=== PATIENT | female | born 1965 | race Caucasian/White ===

== ENCOUNTER 2020-05-01 08:47 | Outpatient (REF) | payer OTHER, SELFPAY ==
--- NOTE | 2020-05-01 09:16 | XR_ITS ---
EXAMINATION: XR LEFT HIP XR LEFT KNEE CLINICAL INFORMATION: Left hip pain. Left knee pain. COMPARISON: None. TECHNIQUE: Left knee 4 views. Left hip 2 views. FINDINGS: Left Knee: Small marginal spurs in the medial compartment. Normal alignment. Joint spaces are maintained. No fracture or dislocation is seen. Small suprapatellar joint fluid. Small quadriceps tendon insertional enthesopathy.. Left Hip: Subchondral sclerosis in the acetabular roof, small subchondral cysts in the lateral acetabulum. Joint space is maintained. No fracture or dislocation. Visualized left SI joint is intact. Surgical clips projected over the pubis. XR/XR hip LT min 2V IMPRESSION: 1. No acute findings in the left knee. Small marginal spurring in the medial compartment. 2. Mild left hip joint arthritis. No evidence of acute fracture.
--- NOTE | 2020-05-01 09:16 | XR_ITS ---
EXAMINATION: XR LEFT HIP XR LEFT KNEE CLINICAL INFORMATION: Left hip pain. Left knee pain. COMPARISON: None. TECHNIQUE: Left knee 4 views. Left hip 2 views. FINDINGS: Left Knee: Small marginal spurs in the medial compartment. Normal alignment. Joint spaces are maintained. No fracture or dislocation is seen. Small suprapatellar joint fluid. Small quadriceps tendon insertional enthesopathy.. Left Hip: Subchondral sclerosis in the acetabular roof, small subchondral cysts in the lateral acetabulum. Joint space is maintained. No fracture or dislocation. Visualized left SI joint is intact. Surgical clips projected over the pubis. XR/XR knee LT 4V IMPRESSION: 1. No acute findings in the left knee. Small marginal spurring in the medial compartment. 2. Mild left hip joint arthritis. No evidence of acute fracture.
[2020-05-01 11:44] LABS: Alanine Aminotransferase 10 U/L (0-31); Anion Gap 13 (12-20); Aspartate Amino Transferase 14 U/L (5-31); Blood Urea Nitrogen 13 mg/dL (9-16); Calcium 8.7 mg/dL (8.4-10.2); Carbon Dioxide 29 mmol/L (22-29); Chloride 102 mmol/L (96-108); Cholesterol 231 mg/dL; Estimated Glomerular Filt Rate > 60; Glucose Fasting 125 mg/dL (60-99); HDL Cholesterol 43 mg/dL; LDL Cholesterol Calculated 163 mg/dl; Potassium 3.8 mmol/l (3.3-5.1); Sodium 140 mmol/L (135-145); Triglycerides 126 mg/dL
== END 2020-05-01 08:48 | disposition home or self-care (01) ==
LOC: HO.HMGCX 08:47
PROVIDERS: PCP Internal Medicine; Visit Provider Internal Medicine
DX: M25.552 Pain in left hip (principal); M25.562 Pain in left knee
CPT/HCPCS: 73502; 73564; 80048; 80061; 84450; 84460

== ENCOUNTER 2020-05-23 12:47 | Outpatient (REF) | payer OTHER, SELFPAY ==
[2020-05-23 17:28] LABS: TSH reflex Free T4 0.95 mIU/mL (0.32-4.0)
[2020-05-24 09:14] LABS: BV Int Neg Control Negative (Negative); BV Int Pos Control Positive (Positive)
[2020-05-24 21:32] LABS: C. trachomatis RNA TMA NOT DETECTED (NOT DETECTED); N. gonorrhoeae RNA TMA NOT DETECTED (NOT DETECTED)
[2020-05-29 02:32] LABS: HPV mRNA E6/E7 rflx Not Detected (Not Detected)
== END 2020-05-23 12:48 | disposition home or self-care (01) ==
LOC: HO.LAB 12:47
PROVIDERS: PCP Internal Medicine; Visit Provider Obstetrics & Gynecology
DX: Z01.419 Encounter for gynecological examination (general) (routine) without abnormal findings (principal); R63.5 Abnormal weight gain
CPT/HCPCS: 36415; 84443; 87480; 87491; 87510; 87591; 87624; 87660; 88142

== ENCOUNTER 2020-09-10 12:32 | Outpatient (REF) | payer OTHER, SELFPAY ==
--- NOTE | ~2020-09-10 | MM_ITS ---
EXAMINATION: MM SCREENING DIGITAL BREAST TOMOSYNTHESIS, BILATERAL CLINICAL INFORMATION: Screening. Asymptomatic. The lifetime risk of breast cancer based on the Tyrer-Cuzick Model is 10%. COMPARISON: Outside mammography: 08/16/2018, 07/08/2016 ([facility]). TECHNIQUE: Digital breast tomosynthesis is performed in both the craniocaudal and mediolateral oblique views along with computer-aided detection (CAD). Synthesized 2D images are generated from the tomosynthesis. FINDINGS: There are scattered areas of fibroglandular density (ACR BI-RADS breast composition Category b). There are no significant masses, abnormal calcifications, or other abnormalities. There is fine fibronodular parenchymal pattern similar to prior exam. The axilla and skin contours are unremarkable. There are no significant changes. MM/MM tomosynthesis screening BI IMPRESSION: No significant changes from prior outside exam. ASSESSMENT: BI-RADS 1: Negative RECOMMENDATION: Routine annual mammography screening. This patient's information was entered into a reminder system with a target due date for their next mammogram.
== END 2020-09-10 12:33 | disposition home or self-care (01) ==
LOC: HO.MAMMO 12:32
PROVIDERS: Visit Provider Internal Medicine
DX: Z12.31 Encounter for screening mammogram for malignant neoplasm of breast (principal)
CPT/HCPCS: 77063; 77067

== ENCOUNTER 2020-10-29 10:18 | Outpatient (REF) | payer OTHER, SELFPAY ==
[2020-10-29 11:27] LABS: MANUAL DIFF FLAG NO
[2020-10-29 11:31] LABS: Basophils Percent Auto 0.4 % (0-2); Eosinophils Absolute Auto 0.2 X10*3/uL (0.0-0.4); Eosinophils Percent Auto 2.8 % (0-4); Hematocrit 42.2 % (37-47); Hemoglobin 13.7 g/dl (12.0-16.0); Imm Gran Abs Auto 0.02 X10*3/uL (0.00-0.03); Imm Gran Pct Auto 0.2 % (0.0-0.4); Lymphocytes Percent Auto 36.8 % (20-40); Mean Corpuscular HGB Conc 32.5 g/dl (31.0-35.0); Mean Corpuscular Hemoglobin 28.2 pg (27.0-33.0); Mean Corpuscular Volume 86.8 fL (80-98); Mean Platelet Volume 10.7 fL (9.4-12.3); Monocytes Absolute Auto 0.7 X10*3/uL (0.1-1.2); Neutrophils Absolute Auto 4.2 X10*3/uL (2.0-8.3); Neutrophils Percent Auto 51.8 % (45-73); Platelet Count 339 X10*3/uL (160-400); Red Blood Count 4.86 X10*6/uL (4.20-5.50); Red Cell Distribution Width 12.6 % (11.0-16.0); White Blood Count 8.1 X10*3/uL (4.8-10.8)
[2020-10-29 11:58] LABS: Alanine Aminotransferase 11 U/L (0-31); Anion Gap 14 (12-20); Aspartate Amino Transferase 14 U/L (5-31); Blood Urea Nitrogen 16 mg/dL (9-16); Calcium 8.8 mg/dL (8.4-10.2); Carbon Dioxide 24 mmol/L (22-29); Chloride 107 mmol/L (96-108); Cholesterol 210 mg/dL; Estimated Glomerular Filt Rate > 60; Glucose Fasting 113 mg/dL (60-99); HDL Cholesterol 39 mg/dL; LDL Cholesterol Calculated 150 mg/dl; Sodium 141 mmol/L (135-145); Triglycerides 105 mg/dL
[2020-10-29 12:21] LABS: TSH reflex Free T4 1.04 uIU/mL (0.32-4.0); Vitamin D 25-OH Total 24.3 ng/mL (>30)
== END 2020-10-29 10:19 | disposition home or self-care (01) ==
LOC: HO.HMGCLDS 10:18
PROVIDERS: PCP Internal Medicine; Visit Provider Internal Medicine
DX: E78.5 Hyperlipidemia, unspecified (principal); G25.81 Restless legs syndrome; I10 Essential (primary) hypertension; R42 Dizziness and giddiness; R51.9 Headache, unspecified; R73.01 Impaired fasting glucose
CPT/HCPCS: 36415; 80048; 80061; 82306; 84443; 84450; 84460; 85025

== ENCOUNTER 2020-12-06 11:00 | Outpatient (RCR) | payer OTHER, SELFPAY ==
--- NOTE | 2020-11-27 13:29 | MHC.PT.EP ---
[facility] [place] Office [place] Office [place] Office [address] Kb Shanks [address] [phone] F: [phone] F: [phone] F: [phone] F: [phone] Physical Therapy Plan of Care Date of Evaluation: Date of Surgery: Diagnosis: LBP Assessment: 55 YO FEMALE REF TO PT FOR LBP W RECENT EXACERBATION 11/17/20- SHE WORKS FULL-TIME AT [employer] , REQ SOME LIFTING/ UNLOADING/ BENDING. OBJECTIVE FINDINGS INCLUDE DECR HIP AND TRUNK FLEXIBILITY, (+) PELVIC ASYMM, (+) SOFT TISSUE IRRITABILITY AND COMPENSATORY LUMBAR PS OVERUSE, AND PAIN IN HER MELVI LS REGION. FUNCTIONAL LIMITATIONS: DECR ANA TO STANDING, INCR SITTING, INCR WALKING, AND BENDING-> FUNCTIONAL SQUAT. Pt CURRENTLY DENIES BOWEL/ BLADDER SIGNS/ SXS AND (-) RADICULAR SXS. Pt WOULD BENEFIT FROM PT TO ADDRESS THE ABOVE FINDINGS AND DEV A HEP/ SELF-SX MGMT TECHN. Frequency and Duration: The patient will be seen 2x WK x 4 WKS Short Term Goals: Pt'S LS PAIN DECR TO 2-3/ 10 IN 2 WKS Pt DEMON PROPER BODY MECH W 3:3 SIMUL ADLs; DEMON WFL FUNCTIONAL SQUAT IN 2 WKS Pt DEMON WFL HIP/ HS/ TRUNK FLEXIBILITY IN 2 WKS Management Department Chair Goals: Pt INDEP W HEP AND SELF-SX MGMT STRATEGIES IN 4 WKS Pt RESUME REG ADLs/ WORK TASKS EVIDENT W IMPROVED OSWESTRY SCORE BY 8 POINTS (30/50 AT EVAL) IN 4 WKS Treatment Plan: Modalities to reduce pain, spasms and effusion. Manual therapy to restore motion and function. Therapeutic exercise to improve strength and flexibility. Neuromuscular re-education for posture and balance. Therapeutic activities to return to functional activities of daily living. Electronically signed by: Tamra Kenyon,PT Please sign and return to therapist. Thank you for your referral.
--- NOTE | 2020-12-13 07:37 | MHC.PT.DC ---
[facility] [place] Office [place] Office [place] Office [address] Kb Shanks [address] [phone] F: [phone] F: [phone] F: [phone] F: [phone] Physical Therapy Discharge Report Diagnosis: LBP Date of Surgery: Date of Evaluation: 11/27/20 Date of Discharge: 12/13/20 Treatments to Date: 4 Cancellations to Date: 0 No Shows to Date: 0 Discharge Status: Achieved Goals Improved Function Independent with HEP Patient Elected to Stop Discharge Summary: Pt REPORTS SHE FEELS MUCH BETTER AND IS READY FOR D/C FROM PT W HER HEP- Pt DEMON IMPROVED FLEXIBILITY, STRENGTH, SELF-POSTURAL CORRECTION , AND BODY MECH AWARENESS W WORK/ ADL SIMULATION. Electronically signed by: Tamra Kenyon,PT Please sign and return to therapist. Thank you for your referral.
== END 2020-12-13 07:39 | disposition home or self-care (01) ==
LOC: HO.PTCHIC 11:00
PROVIDERS: PCP Internal Medicine; Visit Provider Internal Medicine
DX: M54.5 Low back pain (principal)
CPT/HCPCS: 97110; 97140; 97161

== ENCOUNTER 2021-01-04 13:00 | Outpatient (RCR) | payer OTHER, SELFPAY ==
[2020-12-26 11:02] VITALS: BP 138/90; PULSE 87; O2SAT 98
--- NOTE | 2020-12-26 12:24 | MHC.PT.EP ---
[facility] [place] Office [place] Office [address] [phone] F: [phone] F: [phone] F: [phone] F: [phone] Physical Therapy Plan of Care Date of Evaluation: Date of Surgery: Diagnosis: This is a 55 yo female presenting to PT with a script for vertigo. Assessment: This is a 55 yo female presenting to PT with a script for vertigo. Symptoms have been ongoing for months. Symptoms are not every day and are described as fatigue, lightheadedness, loss of concentration and LOB as if one leg is longer than the other . Has symptoms at rest and with movement. She has a previous hx of PT assessment for vertigo but was negative. States that her symptoms went away but came back 2 years later. She has not seen ENT or had imaging. Examination shows oculomotor + tests except for vertical/horizontal saccades as well as conversion. (-) VBI B, and decreased cervical AROM. She was (+) for BPPV with tami-hallpike and performed R Chuy maneuver. Her nystagmus may have been horizontal as well but she was negative in roll test for symptoms and nystagmus. Patient with decreased balance with EC and head turns during DGI. S/S consistent with R PC BPPV and possible vestibular hypofunction; she would benefit from PT 2x/wk for 4wks to address impairments, implement HEP and optimize functional mobility. Frequency and Duration: The patient will be seen 2x/wk for 4wks Short Term Goals: I in HEP Android Architect Goals: Demo no nystagmus or symptoms in assessment positions Demo normal scores on all balance reassessments Report no LOB, return to normal ADLs without symptoms Treatment Plan: Modalities to reduce pain, spasms and effusion. Manual therapy to restore motion and function. Therapeutic exercise to improve strength and flexibility. Neuromuscular re-education for posture and balance. Therapeutic activities to return to functional activities of daily living. Electronically signed by: Yecenia Morales PT Please sign and return to therapist. Thank you for your referral.
--- NOTE | 2021-01-04 13:36 | MHC.PT.OD ---
[facility] [place] Office [place] Office [place] Office [address] Kb Shanks [address] [phone] F: [phone] F: [phone] F: [phone] F: [phone] Physical Therapy Daily Note Diagnosis: This is a 55 yo female presenting to PT with a script for vertigo. Date of Surgery: Date of Evaluation: 12/26/20 Date of Treatment: 01/04/21 Treatments to Date: 4 Cancellations to Date: 1 No Shows to Date: 0 Authorized Visits: Insurance End Date: Precautions/ Contraindications:Denies any significant PMHx Subjective: Patient reporting that she continues to feel dizzy Pain Score and Location: Objective Flowsheet: Tests & Measures Please see eval Exercises PT POC, inner ear anatomy, referrals, symptoms, safety Assessment of B burger pikes and roll test Modalities Assessment: 01/04: Patient has no nystagmus with assessment today in any positions. She reports symptoms in R hallpike and R roll test however. She states that it feels like something is draining through her head and her eyes are heavy. She is dizzy at rest and with positional changes. At this point we discussed holding PT due to limited changes in her symptoms and PT concerns. Educated her that she may benefit from discussing with her MD ENT referral or imaging to further assess symptoms. She is very concerned about productive flem in the AM as she reports that this seems related to her dizziness. Since starting PT we have trialed vestibular tx techniques without resolve of symptoms. 01/03: unable to come, rescheduled to tomorrow 01/04 PT Plan: reassess canals, introduce VOR exercises Short Term Goals: I in HEP Transmission Maintenance Supervisor Goals: Demo no nystagmus or symptoms in assessment positions Demo normal scores on all balance reassessments Report no LOB, return to normal ADLs without symptoms Electronically signed by: Yecenia Morales, PT
--- NOTE | 2021-02-04 10:01 | MHC.PT.DC ---
[facility] [place] Office [place] Office [address] Kb Shanks [address] [facility] [phone] F: [phone] F: [phone] F: [phone] F: [phone] Physical Therapy Discharge Report Diagnosis: This is a 55 yo female presenting to PT with a script for vertigo. Date of Surgery: Date of Evaluation: 12/26/20 Date of Discharge: 02/04/21 Treatments to Date: 4 Cancellations to Date: 1 No Shows to Date: 0 Discharge Status: Recommend MD Follow-up Discharge Summary: Patient had no nystagmus with assessment at the last tx session in any positions. She reports symptoms in R hallpike and R roll test however She states that it feels like something is draining through her head and her eyes are heavy. She is dizzy at rest and with positional changes. At this point we discussed holding PT due to limited changes in her symptoms and PT concerns. Educated her that she may benefit from discussing with her MD ENT referral or imaging to further assess symptoms. She is very concerned about productive flehm in the AM as she reports that this seems related to her dizziness. Since starting PT we have trialed vestibular tx techniques without resolve of symptoms. Electronically signed by: Yecenia Morales, PT Please sign and return to therapist. Thank you for your referral.
== END 2021-02-04 10:01 | disposition home or self-care (01) ==
LOC: HO.PTCHIC 13:00
PROVIDERS: PCP Internal Medicine; Visit Provider Internal Medicine
DX: R42 Dizziness and giddiness (principal)
CPT/HCPCS: 95992; 97110; 97161

== ENCOUNTER → 2021-01-09 10:58 | Outpatient (BNVA) | payer OTHER, SELFPAY | PROVIDERS: PCP Internal Medicine; Visit Provider Dietitian, Registered | DX: R73.01 Impaired fasting glucose (principal) | CPT/HCPCS: 97802 ==

== ENCOUNTER → 2022-10-31 14:28 | Outpatient (BNVA) | payer OTHER, SELFPAY | PROVIDERS: PCP Internal Medicine; Visit Provider Nurse Practitioner Family ==

== ENCOUNTER → 2022-12-04 14:34 | Outpatient (BNVA) | payer OTHER, SELFPAY | PROVIDERS: PCP Internal Medicine; Visit Provider Advanced Practice Midwife ==

== ENCOUNTER → 2023-04-23 10:57 | Outpatient (BNVA) | payer OTHER, SELFPAY | PROVIDERS: PCP Internal Medicine; Visit Provider Physical Medicine & Rehabilitation ==

== ENCOUNTER → 2023-05-01 09:56 | Outpatient (BNVA) | payer OTHER, SELFPAY | PROVIDERS: PCP Internal Medicine; Visit Provider Nurse Practitioner Family ==

== ENCOUNTER → 2024-03-14 11:09 | Outpatient (BNVA) | payer OTHER, SELFPAY | PROVIDERS: PCP Internal Medicine; Referring Provider Internal Medicine; Visit Provider Nurse Practitioner Family ==

== ENCOUNTER 2024-03-31 11:00 | Outpatient (RCR) | payer OTHER, SELFPAY ==
--- NOTE | 2024-02-09 11:45 | MHC.PT.EP ---
[facility] [place] Office [place] Office [place] Office [address] Kb Shanks [address] [phone] F: [phone] F: [phone] F: [phone] F: [phone] Physical Therapy Plan of Care Date of Evaluation: 02/09/24 Date of Surgery: n/a Diagnosis: low back pain Assessment: Patient is a 58 year old female presenting to PT with complaints of pain in her low back. Pt reports onset of pain began October 2023 due to insidious onset. She presents today with impairments in pain, lumbar ROM, hip strength, core strength, +ttp glute and lumbar region. 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 Clinical presentation today is most consistent with signs and sx associated with low back pain and pt will benefit from skilled PT 2 week x 4 weeks to address the following problems and impairments noted upon evaluation: pain, lumbar ROM, hip strength, core strength, +ttp glute and lumbar region. These problems limit the patient with the following functional activities: work, bending, lifting, ADLs, ambulating, standing. The prescribed treatment plan of care is medically necessary. Co-morbidities of fibromyalgia were identified and taken into considerations of plan of care. Pt was educated on HEP, role of PT, prognosis, POC. Frequency and Duration: The patient will be seen 2 x week x 4 weeks Short Term Goals: Pt will demonstrate improved lumbar ROM in available range with min to no pain in 2 weeks. Pt will demonstrate improved hip MMT strength by 1/3 grade in 2 weeks for improved lumbopelvic stability. Pt will demonstrate centralization of sx in 2 weeks. Moisture Meter Reader Goals: Pt will demonstrate improved Cristal score by 10% in 4 weeks for improved functional mobility. Pt will demonstrate ability to work with min to no pain at the end of her shift in 4 weeks for improved work tolerance. Pt will demonstrate ability to ambulate prolonged distances with min to no pain in 4 weeks for return to PLOF. Treatment Plan: Modalities to reduce pain, spasms and effusion. Manual therapy to restore motion and function. Therapeutic exercise to improve strength and flexibility. Neuromuscular re-education for posture and balance. Therapeutic activities to return to functional activities of daily living. Electronically signed by: Amber Seaman PT, DPT, ATC Please sign and return to therapist. Thank you for your referral.
--- NOTE | 2024-03-31 11:33 | MHC.PT.DC ---
[place] Office [place] Office [place] Office [address] Kb Shanks [address] [phone] F: [phone] F: [phone] F: [phone] F: [phone] Physical Therapy Discharge Report Diagnosis: low back pain Date of Surgery: n/a Date of Evaluation: 02/09/24 Date of Discharge: 03/31/24 Treatments to Date: 8 Cancellations to Date: 0 No Shows to Date: 0 Discharge Status: Recommend MD Follow-up Discharge Summary: 03/31/2024: Pt has unfortunately made minimal care home progress since start of care. She feels better at times but her pain continues to return. For a couple weeks she wasn't having numbness in the thigh but this has returned. Her ongoing pain is limiting her functional status. At this time max benefits of PT have been provided and skilled PT is no longer indicated due to lack of her progress. At this time I recommend following up with her referring provider for possibility of more imaging and evaluation/management of her pain. She is in agreement with plan. Electronically signed by: Amber Seaman, PT, DPT, ATC Please sign and return to therapist. Thank you for your referral.
== END 2024-03-31 11:33 | disposition home or self-care (01) ==
LOC: HO.PTCHIC 11:00
PROVIDERS: PCP Internal Medicine; Visit Provider Nurse Practitioner Family
DX: M54.50 Low back pain, unspecified (principal); M79.605 Pain in left leg
CPT/HCPCS: 97110; 97140; 97161

== ENCOUNTER → 2024-04-29 09:13 | Outpatient (BNVA) | payer OTHER, SELFPAY | PROVIDERS: PCP Internal Medicine; Visit Provider Nurse Practitioner Family ==

== ENCOUNTER → 2024-06-13 10:21 | Outpatient (BNVA) | payer OTHER, SELFPAY | PROVIDERS: PCP Internal Medicine ==

== ENCOUNTER 2024-07-26 06:30 | Outpatient (REF) | payer OTHER, SELFPAY ==
--- NOTE | ~2024-07-26 | FL_ITS ---
EXAMINATION: FL GUIDANCE ONLY HISTORY: M54.50 - Low back pain, unspecified COMPARISON: None available. TECHNIQUE: Fluoroscopy time: 0.6 minutes. Cumulative Dose: 9.57 mGy. DAP: 0.166 mGym2 Images: 14. FINDINGS: Fluoroscopic spot images of the lumbar spine demonstrate needles and contrast material in the regions of the bilateral L3-4, L4-5, and L5-S1 facet joints. FL/FL guidance in treatment room IMPRESSION: Fluoroscopy during procedure. Please see procedure report for additional information. Electronically signed by: Cong Jimenez MD 07/26/2024 03:55 PM EDT
--- OUTSIDE RECORDS SUMMARY | 2024-07-26 06:33 | XMS_ITS | Clinical Summary ---
Author Organization [facility] [address] ity Address [address] [place] [address] Care Team Providers Care Brass Cutter Name Role Phone Karen Lovell MD Primary Care Provider Medical History Medical History Date Comments Allergic rhinitis 02/08/2019 DX:Allergic rh initis Deviated nasal septum 02/08/2019 DX:Deviate d nasal septum Hypertrophy of tonsils 02/08/2019 DX:Hypert rophy of tonsils Hypertrophy of nasal turbinates 02/08/2019 DX:Hypertrophy of nasal turbinates Anxiety 02/08/2019 DX:Anxiety Depression 02/08/2019 DX:Depression Hypertension 02/08/2019 DX:Hypertension Mild persistent asthma 11/12/2018 DX:Mild p ersistent asthma Family History Medical History Relation Name Comments Diabetes Father CAD, Hypertensi on Hypertension Mother Relation Name Status Comments Father Mother Social History Tobacco Use Types Packs/Day Years Used Date Smoking Tobacco: Never Smokeless Tobacco: Never Alcohol Use Standard Drinks/Week Comments Yes 0 (1 standard drink = 0.6 oz pur e alcohol) Comments Unknown Sex and Gender Information Value Date Recorded Sex Assigned at Not on file Legal Sex Female 8:36 AM EST Gender Identity Not on file Sexual Orientation Not on file Obstetrics History Last Filed Vital Signs Vital Sign Reading Time Taken Comments Blood Pressure 154/95 11/26/2023 1:17 PM EDT Pulse 81 11/26/2023 1:17 PM EDT Temperature - - Respiratory Rate - - Oxygen Saturation - - Inhaled Oxygen Concentration - - Weight - - Height - - Body Mass Index - - Plan of Treatment Health Maintenance Due Date Last Done Comments Breast Cancer Screening 1966 Hepatitis B Vaccines (1 of 3 - 19+ 3-dose series) 1985 Pneumococcal Vaccine: 50+ Ye ars (1 of 2 - PCV) 1985 Pneumococcal Vaccine: Pediat rics (0 to 5 Years) and At-Risk Patients (6 to 64 Years) (1 of 2 - PCV) 1985 Cervical Cancer Screening: P ap Smear 1987 Zoster Vaccines (1 of 2) 2016 COVID-19 Vaccine ( - 2023-2 5 season) 2024 Influenza Vaccine (#1) 2024 Cholesterol Screening (Lipid Panel) 02/25/2024 Colorectal Cancer Screening: Colonoscopy 02/25/2024 Depression Screening 02/25/2024 HIV Screening 02/25/2024 Hepatitis C Screening 02/25/2024 Hypertension/CHF/CAD Annual BMP Blood Test 02/25/2024 Social Influencers of Health Screening 02/25/2024 DTaP,Tdap,and Td Vaccines (2 - Td or Tdap) 12/05/2028 12/05/2018 HIB Vaccines Aged Out No longer eligi ble based on patient's age to complete this topic HPV Vaccines Aged Out No longer eligi ble based on patient's age to complete this topic Hepatitis A Vaccines Aged Out No long er eligible based on patient's age to complete this topic IPV Vaccines Aged Out No longer eligi ble based on patient's age to complete this topic MMR Vaccines Aged Out No longer eligi ble based on patient's age to complete this topic Meningococcal ACWY Vaccine Aged Out N o longer eligible based on patient's age to complete this topic Meningococcal B Vacine Aged Out No lo nger eligible based on patient's age to complete this topic RSV Immunization Patients Un siria 20 months Aged Out No longer eligible b ased on patient's age to complete this topic Varicella Vaccines Aged Out No longer eligible based on patient's age to complete this topic Care Teams Brass Cutter Relationship Specialty Start Date End Date Karen Lovell MD [address] [facility] [place] [address] PCP - General Internal Medicine 10/18/18
== END 2024-07-26 06:31 | disposition home or self-care (01) ==
LOC: CF 06:30
PROVIDERS: Visit Provider Anesthesiology
DX: M54.50 Low back pain, unspecified (principal); G89.29 Other chronic pain; M47.817 Spondylosis without myelopathy or radiculopathy, lumbosacral region
CPT/HCPCS: 64493; 64494; J2003; J2795; Q9967

== ENCOUNTER 2024-07-26 12:56 | Outpatient (AMB) | payer OTHER, SELFPAY ==
[2024-07-26 13:03] VITALS: BP 148/79; PULSE 86; RESP 16; O2SAT 99
--- NOTE | 2024-07-26 13:03 | A.OFFVIS_ITS ---
Vital Signs 07/26/24 13:03 07/26/24 13:34 BP 148/79 H 158/82 H Blood Pressure Location Lt brachial Lt brachial Position Sitting Sitting Respiration 16 16 Pulse 86 86 Pulse Source Pulse Oximeter Pulse Oximeter Pulse Oximetry (%) 99 96 Oxygen Delivery Method Room Air Room Air Intake Visit Reasons: BILATERAL DIAGNOSTIC L3, L4, DRL5 MBB State Patrol Officer Required: No Accompanied by: sister inlaw Allergies oxycodone [From Percocet] Allergy (Intermediate, Verified 07/26/24 13:04) Itching tramadol Allergy (Intermediate, Verified 07/26/24 13:04) Itching Sulfa (Sulfonamide Antibiotics) Allergy (Verified 07/26/24 13:04) Unknown [facility] Medical History (Updated 07/18/24 @ 14:27 by TIFFANY Mojica) Acute bacterial pharyngitis Spina bifida occulta Type 2 diabetes mellitus without complication, without long-term current use of insulin History of adenomatous polyp of colon Chronic left-sided low back pain Xanthelasma of eyelid, bilateral Polyarthralgia Stress incontinence (female) (male) Obesity Positional lightheadedness Dyslipidemia Restless legs syndrome Fibromyalgia Refused influenza vaccine Essential hypertension Seasonal allergic rhinitis Depression Surgical History (Updated 07/13/24 @ 12:47 by Racheal Mariano) History of esophagogastroduodenoscopy (EGD) Hx of colonoscopy History of tubal ligation H/O carpal tunnel repair H/O: hysterectomy Family History (System 07/13/24 @ 12:47 by Racheal Mariano) Father Diabetes mellitus Hypertension H/O cerebral infarction Mother Hypertension Colon cancer Brother Substance abuse Paternal Aunt Breast cancer Social History (System 07/13/24 @ 12:47 by Racheal Mariano) Housing: House Alcohol intake: current Alcohol intake frequency: holidays/special occasions only Patient Tobacco Use Status: Never used Tobacco e-Cigarette/Vaping Use: Never Used Current occupational status: employed 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 Informed consent was thoroughly explained to the patient before the procedure.? The patient came to the operating room.? She was positioned prone on operating table with a pillow under her abdomen.? Time-out was performed delineating correct site and side of the procedure, nature of the injection, name and date of of the patient. The lower back and upper buttocks of the patient was prepped with ChloraPrep and draped with sterile utility towels.? C-arm was brought over the operating field and the point of interest were delineated as confluence of the superior articular process of L4 vertebra and L5 vertebra bilaterally with corresponding transverse process bilaterally., as well as confluence of the superior articular process of S1 on the bilaterally with sacral ala bilaterally. The point of interest projection to the skin was injected with small amount of mixture of lidocaine 2% and ropivacaine 0.5%. After that 22 gauge 3-1/2 inch needle was driven to point of interest in tunnel vision fashion. When needle gently contacted the bone injection of the contrast was performed delineating no intravascular and no intrathecal spread of the contrast. After that injection of the small amount of ropivacaine 0.5% less than 1 cc into each target site was performed. Upon completion of the injections the needle was removed sterile Band-Aids were applied. The patient tolerated procedure well. She was given a pain diary to complete after the procedure. Orders: Orders FL guidance in treatment room Today G89.29 - Other chronic pain, M47.817 - Spondylosis without myelopathy or radiculopathy, lumbosacral region, M54.50 - Low back pain, unspecified Coding Level of Care Code Procedure Only Diagnoses Lumbosacral spondylosis M47.817
[2024-07-26 13:34] VITALS: BP 158/82; PULSE 86; RESP 16; O2SAT 96
--- OUTSIDE RECORDS SUMMARY | 2024-07-26 15:30 | XMS_ITS | Clinical Summary ---
Author Organization [facility] ity Address [address] [place] [address] Care Team Providers Care Certified Detention Deputy Name Role Phone Karen Lovell MD Primary [...] age to complete this topic Care Teams Certified Detention Deputy Relationship Specialty Start Date End Date Karen Lovell MD [address] [facility] [address] PCP - General Internal Medicine 10/18/18
== END 2024-07-26 14:25 ==
LOC: HO.PMCPRC 12:56
PROVIDERS: PCP Internal Medicine; Visit Provider Anesthesiology
DX: M47.817 Spondylosis without myelopathy or radiculopathy, lumbosacral region (principal)
CPT/HCPCS: 64493; 64494

== ENCOUNTER 2024-08-02 11:24 | Outpatient (AMB) | payer OTHER, SELFPAY ==
--- NOTE | 2024-08-02 11:27 | A.OFFVIS_ITS ---
Vital Signs 08/02/24 11:30 Height 5 ft 7 in BMI Reason not done Patient refused/unable BP 162/95 H Blood Pressure Location Lt brachial Position Sitting Pulse 76 Pulse Source Pulse Oximeter Pulse Oximetry (%) 97 Oxygen Delivery Method Room Air Intake Visit Reasons: BILATERAL DIAGNOSTIC L3, L4, DRL5 MBB Intake Note: Pain today 12/25 Global Logistics Analyst Required: No Accompanied by: Self / Same As Patient Allergies oxycodone [From Percocet] Allergy (Intermediate, Verified 08/02/24 11:31) Itching tramadol Allergy (Intermediate, Verified 08/02/24 11:31) Itching Sulfa (Sulfonamide Antibiotics) Allergy (Verified 08/02/24 11:31) Unknown HPI Comments Details: The patient is a 59-year-old female presenting with axial low back pain and left-sided sciatica. She recently underwent bilateral diagnostic L3-L4 DR L5 medial branch blocks, experiencing reduced pain levels for 4-6 hours, thereafter returning to baseline. Her current regimen includes Tylenol and Aleve, providing mild to moderate relief. The patient?s sciatica primarily impacts her left side, radiating pain exacerbated by movement, causing significant discomfort during daily activities such as walking, standing, and prolonged sitting. She also reports chronic left foot pain and has received cortisone injections through Podiatry services without relief, pain continues especially when barefoot. Patient is interested to address left sciatica pain prior to proceeding with longer term pain relief for axial low back pain. Denies any recent cough, cold, infection, fever or any other significant changes in medical history since last office visit. Past Procedures: 07/26/24: Bilateral Diagnostic L3-L4 DR L5 MBB-90% pain relief for 4-6 hours PRIOR: Patient is a very pleasant 58-year-old female with history of spina bifida occulta at S1, lumbar spondylosis, lumbar radiculopathy, lumbar scoliosis, fibromyalgia, depression, obesity, type 2 diabetes, polyarthralgia, presents today for initial evaluation of worsening chronic low back pain with left-sided radiculopathy. Denies any recent or past trauma, injury, or falls. She completed 4 sessions of physical therapy without significant improvement in her leg symptoms and partial improvement in her back symptoms. Patient has paused PT due to significant increase in her back and left leg pain with PT and home exercise program. 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 which involve lifting, bending, twisting, prolonged walking and standing. Back pain is localized to the left side of lower back with radiation into her left buttock and into her left and lateral posterior thigh and cough with associated numbness, burning, tingling, and intermittent weakness due to pain. Patient denies any previous spine surgeries or injections. She reports history of 2 uncomplicated vaginal deliveries. Currently pain affects her daily activities and functioning, mobility, work, sleep, and social interactions. Pain is most severe during the day and evenings which she rates 6/10. Denies any fever or chills, abdominal or groin pain, bladder or bowel dysfunction or saddle anesthesia. Oswestry low back pain disability score =17 (moderate disability) Location: Lower back radiates into LLE posteriorly Duration: 6 months Characteristics of symptom or complaint: Aching, tingling, stabbing, numbness, cramping sharp, burning, spasming Aggravating or associated factors: Any movement, prolonged walking or standing, bending, lifting, twisting Relieving factors: Laying flat, rest, sitting, heating pad, cyclobenzaprine Treatment: [facility] Medical History Acute bacterial pharyngitis Spina bifida occulta Type 2 diabetes mellitus without complication, without long-term current use of insulin History of adenomatous polyp of colon Chronic left-sided low back pain Xanthelasma of eyelid, bilateral Polyarthralgia Stress incontinence (female) (male) Obesity Positional lightheadedness Dyslipidemia Restless legs syndrome Fibromyalgia Refused influenza vaccine Essential hypertension Seasonal allergic rhinitis Depression Surgical History History of esophagogastroduodenoscopy (EGD) Hx of colonoscopy History of tubal ligation H/O carpal tunnel repair H/O: hysterectomy Family History Father Diabetes mellitus Hypertension H/O cerebral infarction Mother Hypertension Colon cancer Brother Substance abuse Paternal Aunt Breast cancer Social History Housing: House Alcohol intake: current Alcohol intake frequency: holidays/special occasions only Patient Tobacco Use Status: Never used Tobacco e-Cigarette/Vaping Use: Never Used Current occupational status: employed Current occupation: [employer] Gender identity: Female Cognitive needs: No Hearing needs: No Vision needs: Yes Female Reproductive History Menstrual Age of Menarche: 12 Review of Systems Const All systems reviewed & are unremarkable except as noted in HPI and below Physical Exam Vital Signs: Last Vital Signs Pulse 76 08/02/24 11:30 BP 162/95 H 08/02/24 11:30 Pulse Ox 97 08/02/24 11:30 Oxygen Delivery Method Room Air 08/02/24 11:30 General: Appears afebrile. Alert and oriented. Mood and affect appropriate. Follows and participates in conversation appropriately. Respiratory effort is unlabored. No cough. Able to transition from sit to stand unassisted. Ambulates with bilaterally normal heel strike and toe off, reports pain increase with toe/heel standing on the left. General: Yes no CVA tenderness Back/Spine/Pelvis Other: Limited lumbar ROM due to pain. Mildly antalgic gait with slight limping due to left foot pain. Lumbar flexion and axial rotation reproduce [id number] pain. Demonstrates 5/5 strength of quadriceps bilaterally as well as flexion/dorsiflexion of bilateral feet against resistance. Reports decreased sensory sensation in left L5-S1 distribution. 2+ pedal pulses bilaterally. Seated straight leg rise with dorsiflexion positive on the left. +2 patellar and +1 left +2 right achilles reflexes bilaterally. Facet loading test positive bilaterally. Kobe sign is positive bilaterally, Arturo?s, Pelvic compression and Stinchfield tests are positive bilaterally. No groin pain with I/E hip rotations. Valsalva maneuver negative. Multiple widespread TTPs 16/16 bilaterally, including upper and lower extremities. Back: no CVA tenderness Cervical Spine: cervical ROM normal, cervical muscular tenderness and No Cervical spine tenderness Thoracic/Lumbar Spine: thoracic and lumbar spine normal to inspection, No Thoracic/lumbar spine scar(s), Lasegue's sign positive on the left and localized, pain with thoraco-lumbar ROM, paraspinal muscle tenderness, thoraco- lumbar ROM limited, No thoracic spinal tenderness and lumbar spinal tenderness (L3-S1) Pelvis: buttock tenderness on the left and no sciatic notch tenderness Sacroiliac joints: bilaterally tender to palpation Extrem General: Yes capillary refill normal, Yes no clubbing, cyanosis or edema and Yes no calf tenderness Results Reviewed Results Reviewed: XR LUMBOSACRAL SPINE 03/10/24 CLINICAL INFORMATION: Low back pain, unspecified. COMPARISON: None available. TECHNIQUE: 6 views of the lumbar spine, inclusive of flexion and extension views, were obtained. FINDINGS: Multilevel marginal osteophyte formation and endplate sclerosis from the lower thoracic spine to the lumbar spine. S shaped curvature with the dextroconvex convexity at the L2 level. No acute cortical disruption or gross malalignment. Decreased intervertebral disc height, L5-S1. Spina bifida occulta, S1. No lytic or blastic lesions. IMPRESSION: Multilevel thoracolumbar spondylosis without associated scoliosis. No acute fracture or listhesis or instability based upon this exam. MR LUMBAR SPINE WITHOUT AND WITH CONTRAST 04/21/24 CLINICAL INFORMATION: Pain. Spina bifida occulta, history of kidney stones FINDINGS: Mild dextrocurvature of the lumbar spine. Preservation of the normal lumbar lordosis. Grade 1 anterolisthesis at L5-S1. Edema and enhancement involving the left L4 and L5 pedicles. There is also patchy edema and enhancement along the posterior aspect of L5. The vertebral body heights are preserved. Multilevel disc desiccation with mild disc height loss at L4-5 and L5-S1. The visualized spinal cord is normal in caliber. No abnormal cord signal or enhancement. The conus medullaris terminates at L1. T12-L1: No significant spinal canal or neural foraminal narrowing. L1-2: No significant spinal canal or neural foraminal narrowing. L2-3: Bilateral facet arthrosis. Patchy edema surrounding the right facet joint. No significant spinal canal or neural foraminal narrowing. L3-4: Shallow disc bulge and bilateral facet arthrosis. Patchy edema and enhancement surrounding the left greater than right facet joints. No significant spinal canal or neural foraminal narrowing. L4-5: Shallow disc bulge and bilateral facet arthrosis. Patchy edema surrounding the left greater than right facet joints. No significant spinal canal stenosis. Mild left neural foraminal narrowing. L5-S1: Diffuse disc bulge with superimposed left subarticular/foraminal disc protrusion. Bilateral facet arthrosis. There is a 4 mm extracanalicular synovial cyst along the left lamina. No significant spinal canal stenosis. Mild left neural foraminal narrowing with the disc abutting the exiting L5 nerve roots bilaterally. The paravertebral soft tissues are unremarkable. IMPRESSION: -Edema and enhancement the left L4 and L5 pedicles. There is also patchy edema and enhancement along the posterior aspect of L5. Findings are nonspecific and may represent acute reactive changes. Additional edema and enhancement surrounding the right L2-3, bilateral L3-4, and bilateral L4-5 facet joint is also likely degenerative in etiology. -Multilevel lumbar spondylosis without significant spinal canal stenosis. At L5-S1, there is a left subarticular/foraminal disc protrusion which abuts the exiting L5 nerve roots bilaterally. Assessment & Plan Assessment & Plan (1) Chronic left-sided low back pain: Code(s): M54.50 - Low back pain, unspecified; G89.29 - Other chronic pain Category: Medical (2) DDD (degenerative disc disease), thoracolumbar: Code(s): M51.35 - Other intervertebral disc degeneration, thoracolumbar region Category: Medical (3) Lumbar radiculopathy: Code(s): M54.16 - Radiculopathy, lumbar region Category: Medical (4) Muscle spasm of back: Code(s): M62.830 - Muscle spasm of back Category: Medical Plan Patient reports 90% pain relief for up to 6 hours since recent diagnostic lumbar medial branch blocks for axial low back pain. We reviewed benefits, risks and process for RFA and Sprint PNS trial for a longer term pain relief. Patient reports left sided sciatica pain has been more bothersome and she would like to address this initially. Schedule left L5-S1 TFESI injections with local and fluoroscopy. Expectations, risks and benefits were reviewed. Patient is aware she will be contacted to schedule this procedure. Encouraged follow-up with podiatry for more assessment on persistent left foot pain. Current pain control with Tylenol, Aleve, gabapentin, Tylenol, heat therapy, activity modification, and weight optimization with adequate hydration will be maintained. All questions and concerns have been answered and patient agreed with the treatment plan. Follow-up after injections and sooner as needed. Patient was informed and verbally consented to the use of an ambient scribe for clinic note documentation during this visit. Patient Instructions: - Pending insurance approval for left L5-S1 TFESI injection as discussed. - Follow up with podiatry for continued foot pain, consider getting MRI if recommended by installation & maintenance executive. - Continue taking Tylenol, Aleve and gabapentin as needed for back pain and fibromyalgia. Monitor pain levels. - Discuss any new symptoms or changes in pain with me at your next appointment. - Consider RFA and Sprint PNS trial as future treatment options to address axial low back pain. Coding Level of Care Code Est Pt Level 4 (58171) Complex EM visit Add On G2211 Diagnoses Chronic left-sided low back pain M54.50; G89.29 DDD (degenerative disc disease), thoracolumbar M51.35 Lumbar radiculopathy M54.16 Muscle spasm of back M62.830
[2024-08-02 11:30] VITALS: BP 162/95; PULSE 76; O2SAT 97
--- OUTSIDE RECORDS SUMMARY | 2024-08-02 13:56 | XMS_ITS | Clinical Summary ---
Author Organization [facility] ity Address [address] [place] [address] Care Team Providers Care Ring Attacher Name Role Phone Karen Lovell MD Primary [...] age to complete this topic Care Teams Ring Attacher Relationship Specialty Start Date End Date Karen Loevll MD [address] [facility] [place] [address] PCP - General Internal Medicine 10/18/18
== END 2024-08-02 11:45 | disposition home or self-care (01) ==
LOC: HO.PMC 11:25
PROVIDERS: PCP Internal Medicine; Visit Provider Nurse Practitioner Family
DX: M54.50 Low back pain, unspecified (principal); G89.29 Other chronic pain; M51.35 Other intervertebral disc degeneration, thoracolumbar region; M54.16 Radiculopathy, lumbar region; M62.830 Muscle spasm of back
CPT/HCPCS: 99214

== ENCOUNTER 2024-09-12 11:17 | Outpatient (AMB) | payer OTHER, SELFPAY ==
--- NOTE | 2024-09-12 11:28 | A.OFFPC_ITS ---
Vital Signs 09/12/24 11:35 Height 5 ft 7 in Weight 196 lb BMI 30.7 BP 136/86 Blood Pressure Location Lt brachial Position Sitting Respiration 15 Pulse 85 Pulse Source Pulse Oximeter Temp 98.1 F Temp Source Oral Pulse Oximetry (%) 98 Intake Visit Reasons: 6 months follow up Intake Note: Pt is here today for her 6mo. f/u Allergies oxycodone [From Percocet] Allergy (Intermediate, Verified 09/12/24 11:42) Itching tramadol Allergy (Intermediate, Verified 09/12/24 11:42) Itching Sulfa (Sulfonamide Antibiotics) Allergy (Verified 09/12/24 11:42) Unknown Medication List - Last Reconciled 09/12/24 by Karen Lovell MD amlodipine 5 mg PO DAILY ascorbic acid (vitamin C) 500 mg PO DAILY blood-glucose meter As directed cholecalciferol (vitamin D3) 25 mcg PO DAILY cinnamon bark (Cinnamon) 500 mg PO DAILY cranberry 500 mg PO BID docusate sodium 100 mg PO BEDTIME gabapentin 300 mg PO TID 30 days omega [id number]-fish oil 300-1,000 mg 1 cap PO DAILY omeprazole 20 mg PO DAILY PRN oxybutynin chloride ER 5 mg PO DAILY Panax, [place]araguan [id number] 150 mg-25 mg- 25 mg-15 mcg (Ginseng Complex) caps PO turmeric mg PO venlafaxine ER 75 mg PO DAILY Tobacco use date assessed: 09/12/24 Dental Screening Dental Screen Date: 09/12/24 Did you have a dental visit in the last 12 months?: Yes Did you have a dental problem in the last 6 months where you did not have access to dental care?: No Was dental information given to patient?: Patient has dentist [facility] Medical History (Updated 09/12/24 @ 11:44 by Karen Lovell MD) Acute bacterial pharyngitis Spina bifida occulta Type 2 diabetes mellitus without complication, without long-term current use of insulin History of adenomatous polyp of colon Chronic left-sided low back pain Xanthelasma of eyelid, bilateral Polyarthralgia Stress incontinence (female) (male) Obesity Positional lightheadedness Dyslipidemia Restless legs syndrome Fibromyalgia Refused influenza vaccine Essential hypertension Seasonal allergic rhinitis Depression Surgical History History of esophagogastroduodenoscopy (EGD) Hx of colonoscopy History of tubal ligation H/O carpal tunnel repair H/O: hysterectomy Family History Father Diabetes mellitus Hypertension H/O cerebral infarction Mother Hypertension Colon cancer Brother Substance abuse Paternal Aunt Breast cancer Social History Housing: House Alcohol intake: current Alcohol intake frequency: holidays/special occasions only Patient Tobacco Use Status: Never used Tobacco e-Cigarette/Vaping Use: Never Used Current occupational status: employed Current occupation: [employer] Gender identity: Female Cognitive needs: No Hearing needs: No Vision needs: Yes Female Reproductive History Menstrual Age of Menarche: 12 Questionnaire PHQ-9 Over the last 2 weeks, how often have you been bothered by any of the following problems? 1. Little interest or pleasure in doing things: several days 2. Feeling down, depressed, or hopeless: several days 3. Trouble falling or staying asleep, or sleeping too much: several days 4. Feeling tired or having little energy: several days 5. Poor appetite or overeating: several days 6. Feeling bad about yourself - or that you are a failure or have let yourself or your family down: several days 7. Trouble concentrating on things, such as reading the newspaper or watching television: several days 8. Moving or speaking so slowly that other people could have noticed. Or the opposite - being so fidgety or restless that you have been moving around a lot more than usual: several days 9. Thoughts that you would be better off or of hurting yourself in some way: several days Total score: 9 Source: Developed by Drs. Cong Novoa, Rosa Heller, Jordi Morales and colleagues, with an educational jenaro from [employer]. Thrive Questionnaire Date Thrive assessed: 09/12/24 I am a: Patient What is your living situation today?: I have a steady place to live Within the past 12 months, did the food you bought not last and you didn't have the money to get more?: Never true Within the past 12 months, did you worry whether your food would run out before you got money to buy more?: Never true Do you have trouble paying for medicines?: No Do you have trouble getting transportation to medical appointments?: No Do you have trouble paying your heating and electricity bill?: No Do you have trouble taking care of your child, family member or friend?: No Do you have trouble with day-to-day activities such as bathing, preparing meals, shopping, managing finances, etc.?: No Are you currently unemployed and looking for a job?: No Are you interested in more education?: No Please select the resources that you would like help with: None Currently or been in a relationship where the following occur: No concerns reported THRIVE Score: 0 AUDIT C Alcohol Use Questionnaire (AUDIT-C) 1. How often do you have a drink containing alcohol?: Never Total Score: 0 RAYMUNDO-7 AMB Questionnaire RAYMUNDO-7 Date RAYMUNDO - 7 assessed: 03/10/24 Source: Developed by Drs. Cong Novoa, Rosa Heller, Jordi Morales and colleagues, with an educational jenaro from [employer]. Physical exam (Primary Care) Vital Signs: Last Vital Signs Temp 98.1 F 09/12/24 11:35 Pulse 85 09/12/24 11:35 Resp 15 09/12/24 11:35 BP 136/86 09/12/24 11:35 Pulse Ox 98 09/12/24 11:35 BMI result Body Mass Index 30.7 Tobacco/Smoking Status: Tobacco use Status Tobacco use date assessed 09/12/24 09/12/24 11:38 Patient Tobacco Use Status Never used Tobacco 09/12/24 11:30 e-Cigarette/Vaping Use Never Used 09/12/24 11:30 PHQ-9: PHQ-9 Score PHQ-9: Total score 9 09/12/24 11:53 Thrive Assessment: Date of Thrive Assessment Date Thrive assessed 09/12/24 09/12/24 11:30 Currently or been in a relationship where the following occur: No concerns reported Results AMB Hemoglobin A1c AMB Hemoglobin A1c 5.7 % Last Edit by Liane Carrillo CMA on 09/12/24 11:56 Coding Diagnoses Type 2 diabetes mellitus without complication, without long-term current use of insulin E11.9 Dyslipidemia E78.5 Essential hypertension I10 Postmenopausal status Z78.0 Assessment & Plan Assessment & Plan (1) Type 2 diabetes mellitus without complication, without long-term current use of insulin: Code(s): E11.9 - Type 2 diabetes mellitus without complications Category: Medical (2) Dyslipidemia: Code(s): E78.5 - Hyperlipidemia, unspecified Category: Medical (3) Essential hypertension: Code(s): I10 - Essential (primary) hypertension Category: Medical (4) Postmenopausal status: Code(s): Z78.0 - Asymptomatic menopausal state Orders: Orders AMB Hemoglobin A1c Today E11.9 - Type 2 diabetes mellitus without complications Vitamin D 25-OH Total Today Z78.0 - Asymptomatic menopausal state Vitamin B12 and Folate Today Z78.0 - Asymptomatic menopausal state
[2024-09-12 11:35] VITALS: BP 136/86; PULSE 85; RESP 15; TEMP 36.7; O2SAT 98; BMI 30.7
--- OUTSIDE RECORDS SUMMARY | 2024-09-12 13:38 | XMS_ITS | Clinical Summary ---
Author Organization [facility] ity Address [address] [place] [address] Care Team Providers Care Delivery Professional Name Role Phone Karen Lovell MD Primary [...] Vaccine ( - 2023-2 5 season) 2024 Cholesterol Screening (Lipid Panel) 02/25/2024 Colorectal Cancer Screening: Colonoscopy 02/25/2024 Depression Screening 02/25/2024 HIV Screening 02/25/2024 Hepatitis C Screening 02/25/2024 Hypertension/CHF/CAD Annual BMP Blood Test 02/25/2024 Social Influencers of Health Screening 02/25/2024 Influenza Vaccine (Season Ended) 2025 DTaP,Tdap,and Td Vaccines (2 - Td or [...] age to complete this topic Meningococcal B Vaccine Aged Out No l onger eligible based on patient's age to complete this topic RSV Immunization Patients Un siria 20 months Aged Out No longer eligible b ased on patient's age to complete this topic Varicella Vaccines Aged Out No longer eligible based on patient's age to complete this topic Care Teams Delivery Professional Relationship Specialty Start Date End Date Karen Lovell MD [address] [facility] [place] [address] PCP - General Internal Medicine 10/18/18
== END 2024-09-12 12:26 | disposition home or self-care (01) ==
PROVIDERS: PCP Internal Medicine; Visit Provider Internal Medicine
DX: E11.9 Type 2 diabetes mellitus without complications (principal)

== ENCOUNTER → 2024-09-12 11:17 | Outpatient (BNVA) | payer OTHER, SELFPAY | PROVIDERS: PCP Internal Medicine; Visit Provider Internal Medicine | DX: E11.9 Type 2 diabetes mellitus without complications (principal); E78.5 Hyperlipidemia, unspecified; I10 Essential (primary) hypertension; N39.3 Stress incontinence (female) (male); Z79.899 Other long term (current) drug therapy; Z78.0 Asymptomatic menopausal state | CPT/HCPCS: 83036; 96127 ==

== ENCOUNTER 2024-09-14 07:38 | Outpatient (REF) | payer OTHER, SELFPAY ==
--- OUTSIDE RECORDS SUMMARY | 2024-09-14 07:40 | XMS_ITS | Clinical Summary ---
Author Organization [facility] ity Address [address] [place] [address] Care Team Providers Care Supervisor Printing Shop Name Role Phone Karen Lovell MD Primary [...] age to complete this topic Care Teams Supervisor Printing Shop Relationship Specialty Start Date End Date Karen Lovell MD [address] [place] [address] PCP - General Internal Medicine 10/18/18
[2024-09-14 11:00] LABS: Alanine Aminotransferase 17 U/L (0-31); Anion Gap 12 (12-20); Aspartate Amino Transferase 28 U/L (5-31); Blood Urea Nitrogen 20 mg/dL (9-16); Calcium 8.9 mg/dL (8.4-10.2); Carbon Dioxide 28 mmol/L (22-29); Chloride 105 mmol/L (96-108); Cholesterol 207 mg/dL (<200); Estimated Glomerular Filt Rate > 60; Glucose Fasting 115 mg/dL (60-99); HDL Cholesterol 44 mg/dL (>40); LDL Cholesterol Calculated 144 mg/dL (<100); Potassium 3.6 mmol/L (3.3-5.1); Sodium 141 mmol/L (135-145); Triglycerides 95 mg/dL (<150)
[2024-09-14 11:03] LABS: Creatinine Urine 113.53 mg/dL
[2024-09-14 11:07] LABS: Folate 6.5 ng/mL (> or = 4.0); Vitamin B12 752 pg/mL (200-900)
== END 2024-09-14 07:39 | disposition home or self-care (01) ==
LOC: HO.HMGCLDS 07:38
PROVIDERS: PCP Internal Medicine; Visit Provider Internal Medicine
DX: E11.9 Type 2 diabetes mellitus without complications (principal); E78.5 Hyperlipidemia, unspecified; I10 Essential (primary) hypertension; Z78.0 Asymptomatic menopausal state
CPT/HCPCS: 36415; 80048; 80061; 82043; 82306; 82570; 82607; 82746; 84450; 84460

== ENCOUNTER 2025-03-09 15:37 | Outpatient (AMB) | payer OTHER, SELFPAY ==
--- OUTSIDE RECORDS SUMMARY | 2024-02-17 06:01 | XMS_ITS | Continuity of Care Document ---
Author Organization [facility] Address [address] [place] [address] [address] [place] [address] Phone Care Team Providers Care Retail Business Development Manager Name Role Phone Vlad TODD, FROYLAN, Cong [...] Providers Copied on Encounter [facility], [address] [place] [address] Dr Gutierrez [address], [id number], [place] tel:[phone] [facility] No Information 4 Vlad TODD, RAYMOND GALEANO. [address] [facility] 302, [place], [place], [id number], [place]. tel:[phone] Offic/outpt E&m Estab 5 Min Trial- Telemedicine [place] & [place] [facility], [address] [place] [address] Dr [address] [place] Edwards [place], [id number], [place] tel:[phone] [facility] - [place] [facility] [place] Localized edemaCramp and spasmRestless legs syndromeVenou s insufficiency (chronic) (peripheral)E ssential (primary) hypertensionP ruritus, unspecified Kobi-0 4 Giovanna Melvin. [address] [place] [address], [address], [place], [id number], [place]. tel:[phone] [facility], [address] [place] [address] [facility] [address], [id number], [place] tel:[phone] [facility] - [facility] Chronic venous hypertension (idiopathic) with other complications of bilateral lower extremity Apr-2 4 Vlad TODD, FROYLAN, RAYMOND Gar. [address] [place] [address], [place], [id number], [place]. tel:[phone] Referring Provider: Karen Potts, [address] [place] [address], [place], [address]. tel:[phone] Offic Cons [facility] Mod-nd 60- CT & [place] [facility], [address] [place] [address] [facility] [address] 1000[place], [id number], [place] tel:[phone] [facility] - [facility] Chronic venous hypertension (idiopathic) with other complications of bilateral lower extremityLoca lized edemaRestless legs syndromeEssen tial (primary) hypertensionV enous insufficiency (chronic) (peripheral)P ruritus, unspecifiedCr amp and spasm Apr-2 4 Vlad TODD RVT, RAYMOND Gar. [address] [place] [address] 302, [facility] [place], [id number], [place]. tel:[phone] Referring Provider: Karen Potts, [address] [place] [address], [place], [address]. tel:[phone] [facility], [address] [place] [address] Dr [address], [place], [id number], [place] tel:[phone] [facility] Chronic venous hypertension (idiopathic) with other complications of bilateral lower extremity Vlad TODD, RVT, RPVI Cong. [address] [facility], [facility] [address], [place], [id number], [place]. tel:[phone] Referring Provider: Karen Lovell MD [place], [address] [facility] [address] [place], [address]. tel:[phone] Family History Family Member Type Diagnosis Age At Onset No Information Payers Payer name Insurance type Covered democrat ID Authoriza tion(s) No Information Social History [...]
--- NOTE | 2025-03-09 15:52 | MHC.OFFVIS ---
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 Attempting to eat a healthy diet with calcium and vitamin D and stays active with exercise. History of hysterectomy, precancerous cells. Last mammogram; not UTD. Colonoscopy is UTD. FH colon cancer. [facility] Medical History Acute bacterial pharyngitis Spina bifida occulta Type 2 diabetes mellitus without complication, without long-term current use of insulin History of adenomatous polyp of colon Chronic left-sided low back pain Xanthelasma of eyelid, bilateral Polyarthralgia Stress incontinence (female) (male) Obesity Positional lightheadedness Dyslipidemia Restless legs syndrome Fibromyalgia Refused influenza vaccine Essential hypertension Seasonal allergic rhinitis Depression Surgical History History of esophagogastroduodenoscopy (EGD) Hx of colonoscopy History of tubal ligation H/O carpal tunnel repair H/O: hysterectomy Family History Father Diabetes mellitus Hypertension H/O cerebral infarction Mother Hypertension Colon cancer Brother Substance abuse Paternal Aunt Breast cancer Social History Housing: House Alcohol intake: current Alcohol intake frequency: holidays/special occasions only Patient Tobacco Use Status: Never used Tobacco e-Cigarette/Vaping Use: Never Used Current occupational status: employed Current occupation: [employer] Gender identity: Female Cognitive needs: No Hearing needs: No Vision needs: Yes Female Reproductive History Menstrual Age of Menarche: 12 Menopause type: surgical Date of last pap smear: 10/03/21 (neg pap and hpv) History of abnormal pap smear: Yes (hx leep 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) Date of Mammogram: 10/13/23 (Birad 2) Review of Systems Const All systems reviewed & are unremarkable except as noted in HPI and below Reports as per HPI Eyes Reports no additional complaints ENT Reports no additional complaints Card Reports no additional complaints Resp Reports no additional complaints GI Reports as per HPI and Reports no additional complaints Reports as per HPI Musc Reports no additional complaints Skin/Breast Reports as per HPI Neuro Reports no additional complaints Psych Reports no additional complaints Endo Reports no additional complaints Cachorro/Lymph Reports no additional complaints Aller/Immun Reports no additional complaints Physical Exam Vital Signs: Last Vital Signs BP 118/82 03/09/25 15:54 BMI result Body Mass Index 30.9 Const General: cooperative, healthy appearing, no acute distress, well developed and alert Orientation/consciousness: patient oriented x3 HEENT Head: Yes normal to inspection Eyes General: appearance normal, both eyes and all related structures Neck Neck: Yes normal visual inspection Thyroid: Thyroid normal Chest Chest palpation & inspection: normal inspection of the chest and other (no puckering, dimpling, peau de orange, retraction, discharge, masses) Breast/axilla inspection: normal inspection of the breasts Breast/axilla palpation: normal palpation of the breasts Resp Effort & Inspection: normal respiratory effort GI Inspection: Yes normal to inspection Palpation (GI): Soft to palpation Rectal Exam - Female: deferred General: Yes bladder normal to palpation External Female Exam: normal external appearance and normal appearance of the urethra Speculum Exam - Vagina: normal appearance of the vagina, normal palpation and normal vaginal discharge Speculum Exam - Cervix: Cervix absent (Vaginal cuff no lesions or nodules) Bimanual exam- vagina & uterus: normal bimanual exam, normal palpation, bladder normal to palpation and uterus absent Bimanual Exam- Adnexa, other: no masses Skin General skin exam: no rashes or lesions noted Rashes: no rashes Neuro General: patient oriented x3 Cognition (Neuro): normal cognition Extrem General: Yes normal to inspection Psych Attitude: cooperative Thought process: Normal thought process present Assessment & Plan Assessment & Plan (1) Encounter for well woman exam with routine gynecological exam: Code(s): Z01.419 - Encounter for gynecological examination (general) (routine) without abnormal findings Category: Medical Plan Discussed: Current recommendations for pap smears per ASCCP guidelines. Pap obtained today. Breast awareness, periodic self breast exams and yearly mammogram. Mammogram ordered. Maintain a healthy lifestyle, well balanced diet including Calcium 1,200 mg and Vitamin D 600 IU daily, and routine exercise. Patient verbalizes understanding and agrees to the plan of care. She was given opportunity to ask questions and all questions were answered to the best of my ability. RTO in 1 year for annual motor generator set operator exam. This note is constructed using voice recognition software. While every effort has been made to ensure accuracy, parts analyst errors may have been included. Orders: Orders Pap Smear Today Z01.419 - Encounter for gynecological examination (general) (routine) without abnormal findings MM tomosynthesis screening BI Today Z12.31 - Encounter for screening mammogram for malignant neoplasm of breast HPV High risk Today Z01.419 - Encounter for gynecological examination (general) (routine) without abnormal findings Coding Level of Care Code Est Pt Prev Care 40-64y(92059) Diagnoses Encounter for well woman exam with routine gynecological exam Z01.419
[2025-03-09 15:54] VITALS: BP 118/82; BMI 30.9
--- OUTSIDE RECORDS SUMMARY | 2025-03-09 19:13 | XMS_ITS | Clinical Summary ---
Author Organization [facility] ity Address [address] [place] [address] Care Team Providers Care Top And Trim Worker Name Role Phone Karen Lovell MD Primary [...] Last Done Comments Breast Cancer Screening 1966 Colorectal Cancer Screening: Colonoscopy 1966 Hepatitis B Vaccines (1 of 3 - 19+ 3-dose series) 1985 Pneumococcal Vaccine: 50+ Ye ars (1 of 2 - PCV) 1985 Cervical Cancer Screening: P ap Smear 1987 RSV Immunization Adult Patie nts (1 - Risk 50-74 years 1-dose series) 2016 Zoster Vaccines (1 of 2) 2016 Cholesterol Screening (Lipid Panel) 02/25/2024 HIV Screening 02/25/2024 Hepatitis C Screening 02/25/2024 Hypertension/CHF/CAD Annual BMP Blood Test 02/25/2024 Social Influencers of Health Screening 02/25/2024 Depression Screening 05/18/2024 COVID-19 Vaccine (1 - 2023-2 5 season) 2025 Influenza Vaccine (#1) 2025 DTaP,Tdap,and Td Vaccines (2 - Td [...] age to complete this topic Care Teams Top And Trim Worker Relationship Specialty Start Date End Date Karen Lovell MD [address] [place] [address] PCP - General Internal Medicine 10/18/18
== END 2025-03-10 09:24 | disposition home or self-care (01) ==
LOC: HO.HWS 15:37
PROVIDERS: PCP Internal Medicine; Visit Provider Advanced Practice Midwife
DX: Z01.419 Encounter for gynecological examination (general) (routine) without abnormal findings (principal)
CPT/HCPCS: 99396; 99459

== ENCOUNTER 2025-03-09 15:37 | Outpatient (REF) | payer OTHER, SELFPAY | END 2025-03-09 15:38 | disposition home or self-care (01) | LOC: HO.LNP 15:37 | PROVIDERS: PCP Internal Medicine; Visit Provider Advanced Practice Midwife | DX: Z01.419 Encounter for gynecological examination (general) (routine) without abnormal findings (principal); Z11.51 Encounter for screening for human papillomavirus (HPV); Z98.51 Tubal ligation status; Z79.899 Other long term (current) drug therapy | CPT/HCPCS: 87626; 88175 ==

== ENCOUNTER 2025-04-12 14:01 | Outpatient (AMB) | payer OTHER, SELFPAY ==
--- OUTSIDE RECORDS SUMMARY | 2024-02-17 05:01 | XMS_ITS | Continuity of Care Document ---
Author Organization [facility] Address [address] [place] [address] [address] [place] [address] Phone Care Team Providers Care Tag Marker Name Role Phone Vlad TODD, FROYLAN, Cong ANDRADE Unavailable U navailable Allergies, Adverse Reactions, Alerts Substance Reaction Status Criticality Sulfa (Sulfonamide Antibiotics) Active No Information Procedures Procedure Date Offic/outpt E&m Estab 5 Min Trial- Telem edicine CT & [place] 18-30 mmHg Thigh length gradient tony tito stocking Offic Cons New/estab Mod-hi 60- CT & [place] Duplex Scan-extrem Veins; Comp- CT & [place] Advance Directives Directive Yes / No Effective Date File Name No Information Encounters Encounter Description Practice Location Reason(s) For Visit Diagnoses Date Provider Providers Copied on Encounter [facility], [address] [place] [address] Dr Gutierrez [address], [id number], [place] tel:[phone] [facility] No Information 4 Vlad TODD, RAYMOND GALEANO. [address] [facility] [address], [place], [place], [id number], [place]. tel:[phone] Offic/outpt E&m Estab 5 Min Trial- Telemedicine CT & [place] [facility], [address] [place] [address] Dr [address]Suite [place], [id number], [place] tel:[phone] [facility] - [place] [facility] [place] Localized edemaCramp and spasmRestless legs syndromeVenou s insufficiency (chronic) (peripheral)E ssential (primary) hypertensionP ruritus, unspecified Kobi-0 4 Giovanna Melvin. [address] [place] [address], [address], [place], [id number], [place]. tel:[phone] [facility], [address] [place] [address] [facility] [address], [id number], [place] tel:[phone] [facility] - [facility] Chronic venous hypertension (idiopathic) with other complications of bilateral lower extremity Apr-2 4 Vlad TODD, FROYLAN, RAYMOND Gar. [address] [place] [address], [place], [id number], [place]. tel:[phone] Referring Provider: Karen Potts, [address] [place] [address], [place], [address]. tel:[phone] Offic Cons [facility] [place] [facility] Mod-va 60- CT & [place] [facility], [address] [place] [address] [facility] [address], [id number], [place] tel:[phone] [facility] - [facility] Chronic venous hypertension (idiopathic) with other complications of bilateral lower extremityLoca lized edemaRestless legs syndromeEssen tial (primary) hypertensionV enous insufficiency (chronic) (peripheral)P ruritus, unspecifiedCr amp and spasm Apr-2 4 Vlad TODD RVT, RAYMOND Gar. [address] [place] [address] [address], [facility] [place], [id number], [place]. tel:[phone] Referring Provider: Karen Potts, [address] [place] [address], [place], [address]. tel:[phone] [facility], [address] [place] [address] Dr [address], [place], [id number], [place] tel:[phone] [facility] Chronic venous hypertension (idiopathic) with other complications of bilateral lower extremity Vlad TODD, RVT, RPVI Cong. [address] [facility], [facility] 302, [place], [id number], [place]. tel:[phone] Referring Provider: Karen Lovell MD [place], [address] [facility] [address] [place], [address]. tel:[phone] Family History Family Member Type Diagnosis Age At Onset No Information Payers Payer name Insurance type Covered green party ID Authoriza tion(s) No Information Social History Type Description Quantity Date Captured Comments Sex Female Smoking Status No Information Chief Complaint And Reason For Visit No Information Reason For Referral Reason For Referral No Information Plan Of Treatment Date Type Action Status Goal Diet education completed Referral Ordered: Weight management: Referral to physician timeframe: 3 Months (related to Body mass index (BMI) 30.0-30.9, adult) ordered History Of Present Illness Encounter Date Complaint History Of Prese nt Illness No Information Functional Status Date Functional Assessmen t No Information Instructions Date Instruction Additional Infor mation Compression stocking usage as conservative measure Related to Localized edema Patient education booklet given Related to Localized edema Diet education Related to Body mass index (BMI) 30.0-30.9, adult Giving Encouragement to exercise Related to Body mass index (BMI) 30.0-30.9, adult Lifestyle education Related to B milton mass index (BMI) 30.0-30.9, adult Patient education booklet given Related to Chronic venous hypertension (idiopathic) with other complications of bilateral lower extremity Compression stocking usage as conservative measure Related to Chronic venous hypertension (idiopathic) with other complications of bilateral lower extremity Assessments Type Assessment Date No Information Patient Care Teams Name Effective Dates (start - stop) Status Members No Information
--- NOTE | 2025-04-12 14:19 | A.OFFPC_ITS ---
Vital Signs 04/12/25 14:22 Height 5 ft 7 in Weight 201 lb BMI 31.5 BP 140/90 H Blood Pressure Location Lt brachial Position Sitting Respiration 15 Pulse 93 Pulse Source Pulse Oximeter Temp 98.1 F Temp Source Oral Pulse Oximetry (%) 94 Oxygen Delivery Method Room Air Intake Visit Reasons: PE Intake Note: Pt is here today for her PE: Last mammogram 10/13/23, papsmear 03/10/25 Sandwich Hand Required: No Allergies oxycodone (From Percocet) Allergy (Intermediate, Verified 04/12/25 14:38) Itching tramadol Allergy (Intermediate, Verified 04/12/25 14:38) Itching Sulfa (Sulfonamide Antibiotics) Allergy (Verified 04/12/25 14:38) Unknown Medication List - Last Reconciled 04/12/25 by Karen Lovell MD acetaminophen ER (Tylenol Arthritis Pain) 650 mg PO Q12H [advanced collagen PO] amlodipine 5 mg PO DAILY blood-glucose meter As directed chlorophyll copper complex 800 mg PO DAILY cranberry 500 mg PO BID docusate sodium 100 mg PO BEDTIME gabapentin 300 mg PO TID 30 days naproxen sodium (Aleve) 220 mg PO BID PRN omega 4-qya-pbr-fish oil 300-1,000 mg 1 cap PO DAILY omeprazole 20 mg PO DAILY PRN oxybutynin chloride ER 5 mg PO DAILY rosuvastatin 5 mg PO 2XW 3 months turmeric mg PO venlafaxine ER 75 mg PO DAILY vitamin B complex 1 tab PO DAILY Tobacco use date assessed: 04/12/25 Dental Screening Dental Screen Date: 04/12/25 Did you have a dental visit in the last 12 months?: Yes Did you have a dental problem in the last 6 months where you did not have access to dental care?: No Was dental information given to patient?: Patient has dentist HPI PE HPI Details 59-year-old lady with past medical histo ry of hypertension, urinary incontinence, type 2 diabetes mellitus, and depression, here today for her physical exam. She has a scheduled mammogram on May 05, a [facility] appointment next year, and regular six-month dental cleanings. A recent eye exam revealed a small cataract in one eye. The patient refuses all vaccinations. She has been having thumb pain, with tendinitis suspected. She has been havi ng snapping sensation in thumb when grabbing objects. The patient has tried Voltaren (diclofenac) and Biofreeze without improvement Complains of feeling tired all the time, loss of concentration, and memory issues. Sleep is not restful, and the patient's has noted snoring, raising suspicion for obstructive sleep apnea. The patient has never been screened for sleep apnea. She takes Aleve for back pain and reports sharp pains in the upper back, prompting concern about kidney function. There is a history of hyperlipidemia, for which the patient takes rosuvastatin twice a week, and a history of prediabetes with slightly high blood sugar. She has been diagnosed to have Jameson's esophagus and stomach polyps found on a prior upper endoscopy. A colonoscopy in September 2022 revealed and removed two polyps, one of which was a precancerous tubular adenoma. [facility] Medical History (Updated 04/12/25 @ 14:52 by Karen Lovell MD) Excessive daytime sleepiness Acute bacterial pharyngitis Spina bifida occulta Type 2 diabetes mellitus without complication, without long-term current use of insulin History of adenomatous polyp of colon Chronic left-sided low back pain Xanthelasma of eyelid, bilateral Polyarthralgia Stress incontinence (female) (male) Obesity Positional lightheadedness Dyslipidemia Restless legs syndrome Fibromyalgia Refused influenza vaccine Essential hypertension Seasonal allergic rhinitis Depression Surgical History History of esophagogastroduodenoscopy (EGD) Hx of colonoscopy History of tubal ligation H/O carpal tunnel repair H/O: hysterectomy Family History Father Diabetes mellitus Hypertension H/O cerebral infarction Mother Hypertension Colon cancer Brother Substance abuse Paternal Aunt Breast cancer Social History Housing: House Alcohol intake: current Alcohol intake frequency: holidays/special occasions only Patient Tobacco Use Status: Never used Tobacco e-Cigarette/Vaping Use: Never Used Current occupational status: employed 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 1. Little interest or pleasure in doing things: not at all 2. Feeling down, depressed, or hopeless: not at all 3. Trouble falling or staying asleep, or sleeping too much: several days 4. Feeling tired or having little energy: several days 5. Poor appetite or overeating: several days 6. Feeling bad about yourself - or that you are a failure or have let yourself or your family down: several days 7. Trouble concentrating on things, such as reading the newspaper or watching television: several days 8. Moving or speaking so slowly that other people could have noticed. Or the opposite - being so fidgety or restless that you have been moving around a lot more than usual: several days 9. Thoughts that you would be better off or of hurting yourself in some way: several days Total score: 7 Depression Screening Interpretation: Positive Depression Screening Follow-up: Existing condition and In treatment Depression Screening Done: Yes Source: Developed by Drs. Cong Novoa, Rosa Heller, Jordi Morales and colleagues, with an educational jenaro from [employer]. Thrive Questionnaire Date Thrive assessed: 09/12/24 I am a: Patient What is your living situation today?: I have a steady place to live Within the past 12 months, did the food you bought not last and you didn't have the money to get more?: Never true Within the past 12 months, did you worry whether your food would run out before you got money to buy more?: Never true Do you have trouble paying for medicines?: No Do you have trouble getting transportation to medical appointments?: No Do you have trouble paying your heating and electricity bill?: No Do you have trouble taking care of your child, family member or friend?: No Do you have trouble with day-to-day activities such as bathing, preparing meals, shopping, managing finances, etc.?: No Are you currently unemployed and looking for a job?: No Are you interested in more education?: No Please select the resources that you would like help with: None Currently or been in a relationship where the following occur: No concerns reported THRIVE Score: 0 AUDIT C Alcohol Use Questionnaire (AUDIT-C) 1. How often do you have a drink containing alcohol?: Never Total Score: 0 RAYMUNDO-7 AMB Questionnaire RAYMUNDO-7 Date RAYMUNDO - 7 assessed: 04/12/25 Feeling nervous, anxious, or on edge: 0 = Not at all Not being able to stop or control worryin = Not at all Worrying too much about different things: 0 = Not at all Trouble relaxin = Not at all Being so restless that it is hard to sit still: 0 = Not at all Becoming easily annoyed or irritable: 0 = Not at all Feeling afraid as if something awful might happen: 0 = Not at all Total RAYMUNDO-7 score (0-4 normal; 5-9 mild; 10-14 moderate; 15-21 severe): 0 Source: Developed by Drs. Cong Novoa, Rosa Heller, Jordi Morales and colleagues, with an educational jenaro from [employer]. RAYMUNDO-7 Assessment Billing RAYMUNDO-7 Assessment Tool: RAYMUNDO-7 Assessment 21545 Review of Systems Const Reports no additional complaints, Reports excessive sweating, Reports night sweats and Denies weight loss Eyes Details: [employer] [facility], beginning cataract in 1 eye Denies change in vision ENT Details: Gets dental exam and cleaning every six-months Denies vertigo, Denies dizziness, Denies hoarseness, Denies epistaxis and Denies disequilibrium Card Denies chest pain, Denies irregular heart rhythm, Denies lightheadedness, Denies radiating jaw, neck or arm pain and Denies dyspnea Resp Denies chest congestion, Denies cough and Denies dyspnea GI Denies abdominal pain, Denies melena, Denies change in bowel habits, Denies change in stool character and Denies heartburn Reports no additional complaints Musc Reports as per HPI, Reports arthralgias and Reports other (Recurrent muscle spasm mainly in lower back) Skin/Breast Denies breast pain, Denies breast mass and Denies lesions Neuro Denies vertigo, Denies dizziness, Denies Sensory deficit (Neuro) and Denies disequilibrium Psych Reports no additional complaints Endo Reports no additional complaints and Reports excessive sweating Cachorro/Lymph Denies easy bleeding and Denies easy bruising Aller/Immun Reports no additional complaints Physical exam (Primary Care) Vital Signs: Last Vital Signs Temp 98.1 F 04/12/25 14:22 Pulse 93 04/12/25 14:22 Resp 15 04/12/25 14:22 BP 140/90 H 04/12/25 14:22 Pulse Ox 94 04/12/25 14:22 Oxygen Delivery Method Room Air 04/12/25 14:22 BMI result Body Mass Index 31.5 Tobacco/Smoking Status: Tobacco use Status Tobacco use date assessed 04/12/25 04/12/25 14:22 Patient Tobacco Use Status Never used Tobacco 04/12/25 14:22 e-Cigarette/Vaping Use Never Used 04/12/25 14:22 PHQ-9: PHQ-9 Score PHQ-9: Total score 7 04/16/25 02:43 Depression Screening Interpretation: Positive Depression Screening Follow-up: Existing condition and In treatment Thrive Assessment: Date of Thrive Assessment Date Thrive assessed 09/12/24 04/12/25 14:22 Currently or been in a relationship where the following occur: No concerns reported Const General: no acute distress Orientation/consciousness: patient oriented x3 HENMT Head: Yes normocephalic Ears: external ears normal, TM's normal bilaterally and EAC's normal General nose exam: Normal external nose present Face and sinus: Yes face symmetric Mouth: moist mucous membranes Eyes General: appearance normal, both eyes and all related structures Neck Other: Nonpalpable thyroid Neck: Yes full ROM, Yes no lymphadenopathy and Yes supple Resp Effort & Inspection: normal respiratory effort and able to speak in complete sentences Auscultation: clear to auscultation bilaterally Cardio Rate: regular rate Rhythm: regular rhythm Heart sounds: S1 normal heart sound present and S2 normal heart sound present GI Inspection: Yes normal to inspection Palpation (GI): Soft to palpation, nontender and no masses Auscultation: normal bowel sounds Other: Sees [facility] Skin General skin exam: no rashes or lesions noted Neuro General: patient oriented x3, gait normal, moves all extremities, Normal light touch and pain sensation, no focal motor deficits and CN's II-XI intact bilaterally Sensory Exam: No Sensory deficit (Neuro) Extrem General: Yes full ROM, Yes no joint enlargement, Yes no pedal edema, Yes no calf tenderness and Yes normal gait Psych Appearance: grossly normal and well kempt Mental Status: mental status grossly normal Speech and movement: Normal speech and movement present Affect: normal affect Coding Level of Care Code Est Pt Prev Care 40-64y(87003) Diagnoses Annual visit for general adult medical examination with abnormal findings Z00.01 Recurrent major depressive disorder, in full remission F33.42 Active/Remission status: in full remission Depression Type: major depressive disorder Major depression recurrence: recurrent Essential hypertension I10 Dyslipidemia E78.5 Class 1 obesity due to excess calories without serious comorbidity with body mass index (BMI) of 31.0 to 31.9 in adult E66.811; E66.09; Z68.31 Body mass index: BMI 31.0-31.9 Obesity classification: adult class 1 (BMI 30 - 34.9) Obesity type: due to excess calories Serious obesity comorbidity presence: without serious comorbidity Stress incontinence (female) (male) N39.3 Chronic heartburn R12 Polyarthralgia M25.50 Type 2 diabetes mellitus without complication, without long-term current use of insulin E11.9 Loud snoring R06.83 Chronic fatigue R53.82 Additional Codes RAYMUNDO-7 Assessment Billing - RAYMUNDO-7 Assessment Tool: RAYMUNDO-7 Assessment 32878 ([id number]) Assessment & Plan Assessment & Plan (1) Annual visit for general adult medical examination with abnormal findings: Code(s): Z00.01 - Encounter for general adult medical examination with abnormal findings (2) Depression: Code(s): F32.9 - Major depressive disorder, single episode, unspecified Category: Medical Qualifiers: Active/Remission status: in full remission Depression Type: major depressive disorder Major depression recurrence: recurrent Qualified Code(s): F33.42 - Major depressive disorder, recurrent, in full remission (3) Essential hypertension: Code(s): I10 - Essential (primary) hypertension Category: Medical (4) Dyslipidemia: Code(s): E78.5 - Hyperlipidemia, unspecified Category: Medical (5) Obesity: Code(s): E66.9 - Obesity, unspecified Category: Medical Qualifiers: Body mass index: BMI 31.0-31.9 Obesity classification: adult class 1 (BMI 30 - 34.9) Obesity type: due to excess calories Serious obesity comorbidity presence: without serious comorbidity Qualified Code(s): E66.811 - Obesity, class 1; E66.09 - Other obesity due to excess calories; Z68.31 - Body mass index [BMI] 31.0-31.9, adult (6) Stress incontinence (female) (male): Code(s): N39.3 - Stress incontinence (female) (male) Category: Medical (7) Chronic heartburn: Code(s): R12 - Heartburn Category: Medical (8) Polyarthralgia: Code(s): M25.50 - Pain in unspecified joint Category: Medical (9) Type 2 diabetes mellitus without complication, without long-term current use of insulin: Code(s): E11.9 - Type 2 diabetes mellitus without complications Category: Medical (10) Loud snoring: Code(s): R06.83 - Snoring (11) Chronic fatigue: Code(s): R53.82 - Chronic fatigue, unspecified Plan thumb pain is likely tendinitis from overuse. I recommended rest and a trial of [id number] Advil ointment. We discussed the possibility of obstructive sleep apnea as a cause for the patient's significant fatigue, non-restful sleep, and snoring. I have ordered a sleep study to investigate this further and explained that the clinic will contact the patient for scheduling. I reviewed the results of the 2022 colonoscopy, emphasizing the importance of follow-up due to the removal of a precancerous polyp, and a repeat procedure is due in three years. I also ordered fasting blood work to monitor cholesterol, glucose, and kidney function, and to investigate other potential causes for fatigue. We discussed lifestyle modifications, particularly dietary changes to reduce the intake of sugar, bread, and rice, to aid in weight management, blood sugar control, and reduction of inflammation. Continued on venlafaxine for control of depression, rosuvastatin 5 mg twice a day week, and omeprazole 1 capsule daily as needed for heartburn symptoms. Blood pressure slightly elevated on this visit, will continue amlodipine 5 mg daily , reinforced importance of adhering to a low-salt diet and getting at least 15-30 minutes of moderate intensity exercise daily. Patient refused recommended vaccines Orders: Orders Vitamin D 25-OH Total 04/12/25 E11.9 - Type 2 diabetes mellitus without complications, E66.09 - Other obesity due to excess calories, E66.811 - Obesity, class 1, E78.5 - Hyperlipidemia, unspecified, F33.42 - Major depressive disorder, recurrent, in full remission, I10 - Essential (primary) hypertension, M25.50 - Pain in unspecified joint, N39.3 - Stress incontinence (female) (male), R12 - Heartburn, Z00.01 - Encounter for general adult medical examination with abnormal findings, Z68.31 - Body mass index [BMI] 31.0-31.9, adult Basic Metabolic Panel Fasting 04/12/25 E11.9 - Type 2 diabetes mellitus without complications, E66.09 - Other obesity due to excess calories, E66.811 - Obesity, class 1, E78.5 - Hyperlipidemia, unspecified, F33.42 - Major depressive disorder, recurrent, in full remission, I10 - Essential (primary) hypertension, M25.50 - Pain in unspecified joint, N39.3 - Stress incontinence (female) (male), R12 - Heartburn, Z00.01 - Encounter for general adult medical examination with abnormal findings, Z68.31 - Body mass index [BMI] 31.0-31.9, adult Aspartate Amino Transferase 04/12/25 E11.9 - Type 2 diabetes mellitus without complications, E66.09 - Other obesity due to excess calories, E66.811 - Obesity, class 1, E78.5 - Hyperlipidemia, unspecified, F33.42 - Major depressive disorder, recurrent, in full remission, I10 - Essential (primary) hypertension, M25.50 - Pain in unspecified joint, N39.3 - Stress incontinence (female) (male), R12 - Heartburn, Z00.01 - Encounter for general adult medical examination with abnormal findings, Z68.31 - Body mass index [BMI] 31.0-31.9, adult Lipid Panel 04/12/25 E11.9 - Type 2 diabetes mellitus without complications, E66.09 - Other obesity due to excess calories, E66.811 - Obesity, class 1, E78.5 - Hyperlipidemia, unspecified, F33.42 - Major depressive disorder, recurrent, in full remission, I10 - Essential (primary) hypertension, M25.50 - Pain in unspecified joint, N39.3 - Stress incontinence (female) (male), R12 - Heartburn, Z00.01 - Encounter for general adult medical examination with abnormal findings, Z68.31 - Body mass index [BMI] 31.0-31.9, adult Hemoglobin A1c 04/12/25 E11.9 - Type 2 diabetes mellitus without complications, E66.09 - Other obesity due to excess calories, E66.811 - Obesity, class 1, E78.5 - Hyperlipidemia, unspecified, F33.42 - Major depressive disorder, recurrent, in full remission, I10 - Essential (primary) hypertension, M25.50 - Pain in unspecified joint, N39.3 - Stress incontinence (female) (male), R12 - Heartburn, Z00.01 - Encounter for general adult medical examination with abno rmal findings, Z68.31 - Body mass index [BMI] 31.0-31.9, adult Vitamin B12 and Folate 04/12/25 E11.9 - Type 2 diabetes mellitus without complications, E66.09 - Other obesity due to excess calories, E66.811 - Obesity, class 1, E78.5 - Hyperlipidemia, unspecified, F33.42 - Major depressive disorder, recurrent, in full remission, I10 - Essential (primary) hypertension, M25.50 - Pain in unspecified joint, N39.3 - Stress incontinence (female) (male), R12 - Heartburn, Z00.01 - Encounter for general adult medical examination with abnormal findings, Z68.31 - Body mass index [BMI] 31.0-31.9, adult Complete Blood Count Auto Diff 04/12/25 E11.9 - Type 2 diabetes mellitus without complications, E66.09 - Other obesity due to excess calories, E66.811 - Obesity, class 1, E78.5 - Hyperlipidemia, unspecified, F33.42 - Major depressive disorder, recurrent, in full remission, I10 - Essential (primary) hypertension, M25.50 - Pain in unspecified joint, N39.3 - Stress incontinence (female) (male), R12 - Heartburn, Z00.01 - Encounter for general adult medical examination with abnormal findings, Z68.31 - Body mass index [BMI] 31.0-31.9, adult Alanine Aminotransferase 04/12/25 E11.9 - Type 2 diabetes mellitus without complications, E66.09 - Other obesity due to excess calories, E66.811 - Obesity, class 1, E78.5 - Hyperlipidemia, unspecified, F33.42 - Major depressive disorder, recurrent, in full remission, I10 - Essential (primary) hypertension, M25.50 - Pain in unspecified joint, N39.3 - Stress incontinence (female) (male), R12 - Heartburn, Z00.01 - Encounter for general adult medical examination with abnormal findings, Z68.31 - Body mass index [BMI] 31.0-31.9, adult TSH reflex Free T4 04/12/25 E11.9 - Type 2 diabetes mellitus without complications, E66.09 - Other obesity due to excess calories, E66.811 - Obesity, class 1, E78.5 - Hyperlipidemia, unspecified, F33.42 - Major depressive disorder, recurrent, in full remission, I10 - Essential (primary) hypertension, M25.50 - Pain in unspecified joint, N39.3 - Stress incontinence (female) (male), R12 - Heartburn, Z00.01 - Encounter for general adult medical examination with abnormal findings, Z68.31 - Body mass index [BMI] 31.0-31.9, adult Referrals Sleep Medicine Referral G47.19 - Other hypersomnia, R06.83 - Snoring, R53.82 - Chronic fatigue, unspecified
[2025-04-12 14:22] VITALS: BP 140/90; PULSE 93; RESP 15; TEMP 36.7; O2SAT 94; BMI 31.5
--- OUTSIDE RECORDS SUMMARY | 2025-04-12 17:03 | XMS_ITS | Clinical Summary ---
Author Organization [facility] ity Address [address] [place] [address] Care Team Providers Care Race Car Driver Name Role Phone Karen Lovell MD Primary [...] Depression Screening 05/18/2024 COVID-19 Vaccine (1 - 2024-2 6 season) 2025 Influenza Vaccine (#1) 2025 DTaP,Tdap,and [...] age to complete this topic Care Teams Race Car Driver Relationship Specialty Start Date End Date Karen Lovell MD [address] [place] [address] PCP - General Internal Medicine 10/18/18
== END 2025-04-12 15:09 | disposition home or self-care (01) ==
LOC: HO.HMCC 14:01
PROVIDERS: PCP Internal Medicine; Visit Provider Internal Medicine
DX: Z00.01 Encounter for general adult medical examination with abnormal findings (principal); F33.42 Major depressive disorder, recurrent, in full remission; I10 Essential (primary) hypertension; E78.5 Hyperlipidemia, unspecified; E66.811 Obesity, class 1; E66.09 Other obesity due to excess calories; Z68.31 Body mass index [BMI] 31.0-31.9, adult; N39.3 Stress incontinence (female) (male); R12 Heartburn; M25.50 Pain in unspecified joint; E11.9 Type 2 diabetes mellitus without complications; R06.83 Snoring; R53.82 Chronic fatigue, unspecified

== ENCOUNTER → 2025-04-12 14:01 | Outpatient (BNVA) | payer OTHER, SELFPAY | PROVIDERS: PCP Internal Medicine; Visit Provider Internal Medicine | DX: Z00.01 Encounter for general adult medical examination with abnormal findings (principal); I10 Essential (primary) hypertension; E11.9 Type 2 diabetes mellitus without complications; M54.9 Dorsalgia, unspecified; E78.5 Hyperlipidemia, unspecified; F33.42 Major depressive disorder, recurrent, in full remission; E66.811 Obesity, class 1; E66.09 Other obesity due to excess calories; R12 Heartburn; M25.50 Pain in unspecified joint; R06.83 Snoring; Z68.31 Body mass index [BMI] 31.0-31.9, adult; Z79.899 Other long term (current) drug therapy | CPT/HCPCS: 96127 ==

== ENCOUNTER 2025-04-20 09:18 | Outpatient (REF) | payer OTHER, SELFPAY ==
--- OUTSIDE RECORDS SUMMARY | 2025-04-20 10:20 | XMS_ITS | Clinical Summary ---
Author Organization [facility] ity Address [address] [place] [address] Care Team Providers Care Educational Specialist Name Role Phone Karen Lovell MD Primary Care Provider [phone] Medical History Medical History Date Comments Allergic [...] age to complete this topic Care Teams Educational Specialist Relationship Specialty Start Date End Date Karen Lovell MD [address] [place] [address] PCP - General Internal Medicine 10/18/18
[2025-04-20 13:00] LABS: MANUAL DIFF FLAG NO
[2025-04-20 13:09] LABS: Hematocrit 41.2 % (37.0-47.0); Hemoglobin 13.6 g/dl (12.0-16.0); Imm Gran Abs Auto 0.03 X10*3/uL (0.00-0.03); Imm Gran Pct Auto 0.4 % (0.0-0.4); Lymphocytes Absolute Auto 2.7 X10*3/uL (1.2-4.9); Mean Corpuscular HGB Conc 33.0 g/dl (31.0-35.0); Mean Corpuscular Hemoglobin 28.2 pg (27.0-33.0); Mean Corpuscular Volume 85.3 fL (80.0-98.0); NRBC Abs Auto 0.000 X10*3/uL (0.0-0.012); NRBC Pct Auto 0.0 /100WBC (0.0-0.2); Platelet Count 304 X10*3/uL (160-400); Red Blood Count 4.83 X10*6/uL (4.20-5.50); White Blood Count 7.6 X10*3/uL (4.8-10.8)
[2025-04-20 13:21] LABS: Alanine Aminotransferase 17 U/L (0-31); Anion Gap 10 (12-20); Aspartate Amino Transferase 26 U/L (5-31); Blood Urea Nitrogen 15 mg/dL (9-16); Calcium 9.0 mg/dL (8.4-10.2); Carbon Dioxide 29 mmol/L (22-29); Chloride 105 mmol/L (96-108); Cholesterol 182 mg/dL (<200); Estimated Glomerular Filt Rate > 60; HDL Cholesterol 38 mg/dL (>40); Potassium 3.2 mmol/L (3.3-5.1); Sodium 141 mmol/L (135-145); Triglycerides 98 mg/dL (<150)
[2025-04-20 14:00] LABS: Folate 9.3 ng/mL (> or = 4.0); Vitamin B12 779 pg/mL (200-900)
== END 2025-04-20 09:19 | disposition home or self-care (01) ==
LOC: HO.HMGCLDS 09:18
PROVIDERS: PCP Internal Medicine; Visit Provider Internal Medicine
DX: Z00.00 Encounter for general adult medical examination without abnormal findings (principal); F33.42 Major depressive disorder, recurrent, in full remission; I10 Essential (primary) hypertension; E78.5 Hyperlipidemia, unspecified; E11.9 Type 2 diabetes mellitus without complications; E66.811 Obesity, class 1; Z68.31 Body mass index [BMI] 31.0-31.9, adult; N39.3 Stress incontinence (female) (male); M25.50 Pain in unspecified joint; R12 Heartburn
CPT/HCPCS: 36415; 80048; 80061; 82306; 82607; 82746; 83036; 84443; 84450; 84460; 85025

== ENCOUNTER 2025-05-05 12:59 | Outpatient (REF) | payer OTHER, SELFPAY ==
--- NOTE | ~2025-05-05 | MM_ITS ---
EXAMINATION: MM SCREENING DIGITAL BREAST TOMOSYNTHESIS, BILATERAL CLINICAL INFORMATION: Screening. Asymptomatic. COMPARISON: Mammography: Comparison is made with available priors TECHNIQUE: Digital breast mammography with tomosynthesis is performed in both the craniocaudal and mediolateral oblique views along with computer-aided detection (CAD). FINDINGS: There are scattered areas of fibroglandular density. Right marker clip. There are no significant masses, abnormal calcifications, or other abnormalities. MM/MM tomosynthesis screening BI IMPRESSION: No mammographic evidence of malignancy. ASSESSMENT: BI-RADS Category 2: Benign RECOMMENDATION: Routine annual mammography screening. 1 year F/U This examination should not preclude the clinical evaluation of a suspicious palpable abnormality. This patient's information was entered into a reminder system with a target due date for their next mammogram. Electronically signed by: Monique Brown DO 05/09/2025 10:29 AM CHUCK
--- OUTSIDE RECORDS SUMMARY | 2025-05-05 14:46 | XMS_ITS | Clinical Summary ---
Author Organization [facility] ity Address [address] [place] [address] Care Team Providers Care Talent Development Coordinator Name Role Phone Karen Lovell MD Primary [...] on file Sexual Orientation Not on file Last Filed Vital Signs Vital Sign Reading [...] age to complete this topic Care Teams Talent Development Coordinator Relationship Specialty Start Date End Date Karen Lovell MD [address] [place] [address] PCP - General Internal Medicine 10/18/18
== END 2025-05-05 13:00 | disposition home or self-care (01) ==
LOC: HO.MAMMO 12:59
PROVIDERS: PCP Internal Medicine; Visit Provider Advanced Practice Midwife
DX: Z12.31 Encounter for screening mammogram for malignant neoplasm of breast (principal)
CPT/HCPCS: 77063; 77067

== ENCOUNTER → 2025-05-05 13:15 | Outpatient (BNV) | payer OTHER, SELFPAY | PROVIDERS: PCP Internal Medicine; Visit Provider Internal Medicine | DX: Z12.31 Encounter for screening mammogram for malignant neoplasm of breast (principal) | CPT/HCPCS: 77063; 77067 ==